=== PATIENT | female | born 1945 | race Caucasian/White ===

== ENCOUNTER 2017-03-06 06:31 | Inpatient (IN) | payer BC ==
[~2017-03-06] VITALS: Ht 167.6 cm; Wt 72.6 kg
[2017-03-06 06:32] VITALS: BP 135/65
[2017-03-06] MEDS ORDERED: OMEPRAZOLE20 MG PO (06:35)
[2017-03-06] MEDS ORDERED: DICLOFENAC SODI75 MG (06:36)
[2017-03-06 06:57] LABS: URINE BILIRUBIN NEGATIVE (Negative); URINE BLOOD 3+ (Negative); URINE CLARITY CLEAR; URINE COLOR YELLOW; URINE GLUCOSE-RANDOM NEGATIVE (Negative); URINE KETONES NEGATIVE (Negative); URINE LEUKOCYTES-REFLEX 1+ (Negative); URINE PROTEIN TRACE (Negative); URINE SPECIFIC GRAVITY >= 1.030 (1.005-1.030); URINE UROBILINOGEN 0.2 E.U./dl (0.2-1.0)
[2017-03-06 06:58] LABS: URINE NITRITE-REFLEX POSITIVE (Negative)
[2017-03-06 07:02] LABS: ABSOLUTE BASOPHILS 0.2 thou/uL (0.0-0.2); ABSOLUTE EOSINOPHILS 0.1 thou/uL (0.0-0.7); BASOPHILS 1.3 %; NUCLEATED RBCS 0 /100WBC; WBC 14.2 thou/uL (4.0-11.0)
[2017-03-06 07:04] LABS: CASTS None Seen /LPF (None Seen); CRYSTALS None Seen /LPF (None Seen); MUCUS 4-6 Moderate strn/LPF (None Seen); SQUAMOUS 0-3 Few /LPF (0-3); URINE RBC 3-10 Few /HPF (0-2); URINE WBC-REFLEX 6-15 Few /HPF (0-5)
[2017-03-06 07:07] LABS: ABSOLUTE LYMPHOCYTES 1.5 thou/uL (0.8-5.3); ABSOLUTE NEUTROPHILS 11.4 thou/uL (1.6-8.1); EOSINOPHILS 0.9 %; HEMATOCRIT 40.5 % (37.0-47.0); HEMOGLOBIN 13.7 gm/dL (12.0-15.0); LYMPHOCYTES 10.6 %; MCH 30.5 pg (26.0-34.0); MCHC 33.9 g/dL (28.0-37.0); MCV 89.8 fL (80.0-100.0); MONOCYTES 6.8 %; MPV 7.4 fl. (7.2-11.1); PLATELET COUNT* 273 thou/uL (150-400); POLYS 80.4 %; RBC 4.51 mil/uL (4.20-5.00); RDW-CV 13.8 % (10.5-14.5)
[2017-03-06 07:19] LABS: ANION GAP 7 mmol/L (7-16); BUN 29 mg/dL (7-18); CALCIUM 9.3 mg/dL (8.5-10.1); CHLORIDE 106 mmol/L (98-107); CO2 29 mmol/L (21-32); CREATININE 1.2 mg/dL (0.6-1.3); GLUCOSE 136 mg/dL (70-99); SODIUM 142 mmol/L (136-145)
[2017-03-06 07:24] LABS: ALBUMIN 3.3 g/dL (3.4-5.0); ALKALINE PHOSPHATASE 111 U/L (46-116); LIPASE 73 U/L (73-393); SGOT 32 U/L (15-37); SGPT 33 U/L (30-65); TOTAL BILIRUBIN 0.4 mg/dL (<0.1-1.0); TOTAL PROTEIN 6.7 g/dL (6.4-8.2); TROPONIN-I LEVEL <0.06 ng/mL (<0.06)
[2017-03-06 07:25] LABS: POTASSIUM 4.1 mmol/L (3.5-5.1)
--- NOTE | 2017-03-06 08:26 | NUR ---
BERNARDA NOTIFIED UPON PT RETURN FROM CT. SHE WAS NOT CONNECTED TO MONITOR SHE WAS NOT CONNECTED PRIOR TO GOING TO CT
--- NOTE | 2017-03-06 10:36 | EKG ---
[place] [address] ELECTROCARDIOGRAM REPORT Name: FARIDABHASKAR Cliff Room: [facility]9 ADM IN [facility].#: [id number] Admission: 03/06/17 Attend Phys: Monty Lemus Discharge: Date of : 49 Report #: [id number] THIS REPORT FOR: //name// [facility] ED Test Date: 2017-03-06 Test Time: 07:07:48 Pat Name: BHASKAR IQBAL Department: Room: [facility] Gender: F [employer]: : 1945 Requested By: Pop Dobbins Order Number: [id number] MD: Kevin Thurman Measurements Intervals [place] Rate: 70 P: 57 GA: 160 QRS: 3 QRSD: 123 T: 63 QT: 407 QTc: 440 Interpretive Statements Sinus rhythm Nonspecific t wave changes No previous ECG available for comparison Electronically Signed On 03-06-2017 10:35:45 HEALTH CARE CONSULTANT by Kevin Thurman [email or web address] <ELECTRONICALLY SIGNED> By: Kevin Thurman MD, [facility] 03/06/17 1035 D: 01/706 6 Kevin Thurman MD, FACC /EPI
[2017-03-06 18:21] VITALS: BP 111/53
[2017-03-06 18:48] VITALS: BP 123/60
--- NOTE | 2017-03-06 18:50 | NUR ---
PATIENT CAME TO THE FLOOR FROM THE ER IN STABLE CONDITION. PAIN IN LOWER LEFT ABDOMEN. PATIENT IS UP AD LAKISHA IN ROOM, WILL CALL FOR HELP IF NEEDED. FAMILY IS BEDISDE WITH FAMILY. ADMISSION EDUCATION AND ASSESSMENT DONE.
[2017-03-06 23:50] VITALS: BP 123/49
[2017-03-07 04:58] LABS: ABSOLUTE LYMPHOCYTES 1.8 thou/uL (0.8-5.3); ABSOLUTE MONOCYTES 0.9 thou/uL (0.0-1.2); ABSOLUTE NEUTROPHILS 8.6 thou/uL (1.6-8.1); BASOPHILS 0.3 %; EOSINOPHILS 0.3 %; LYMPHOCYTES 16.2 %; MCHC 34.3 g/dL (28.0-37.0); MCV 90.5 fL (80.0-100.0); MONOCYTES 7.6 %; MPV 7.8 fl. (7.2-11.1); NUCLEATED RBCS 0 /100WBC; PLATELET COUNT* 209 thou/uL (150-400); POLYS 75.6 %; RBC 3.43 mil/uL (4.20-5.00); RDW-CV 13.9 % (10.5-14.5); WBC 11.3 thou/uL (4.0-11.0)
[2017-03-07 05:03] LABS: HEMOGLOBIN 10.6 gm/dL (12.0-15.0)
--- NOTE | 2017-03-07 06:08 | NUR ---
ASSESSMENT COMPLETE. PT SLEPT MOST OF THE NIGHT WITHOUT ANY CONCERNS. PT GIVEN PRN PAIN AND NAUSEA MEDS NEEDED. PT HAS IV FLUIDS INFUSING. PT IS NPO FOR POSSIBILITY OF SURGERY. PT HRR, ADEQUATE SATS ON ROOM AIR. PT IS UP WITH STANDBY ASSIST TO BATHROOM. SEE ASSESSMENT AND VITALS FOR OTHER DETAILS. CALL LIGHT WITHIN REACH, WILL CONTINUE TO MONITOR
[2017-03-07 08:15] VITALS: BP 115/52
[2017-03-07 08:30] VITALS: BP 123/49
[2017-03-07 14:38] VITALS: BP 105/52
--- NOTE | 2017-03-07 16:03 | NUR ---
SW met with pt and pt and dtr in law at bedside. SW completed initial assessment and introduced self and SW role. Pt alert and oriented, pleasant. Pt lives at home with her . Pt independent and does not have any DME or hx HH or SNF. Pt expressed she does not anticipate any dc needs. SW to continue to follow.
--- NOTE | 2017-03-07 18:06 | NUR ---
PATIENT IS ALERT AND ORIENTED TODAY, VERY PLEASANT. NO COMPLAINTS OF ANY KIND SINCE RETURNING FROM THE OR THIS MORNING. IV IN RIGHT WRIST WORKS WELL WITH IV FLUIDS RUNNING AND ANTIBIOTICS. VITAL SIGNS HAVE BEEN STABLE, UP IN ROOM. CALL LIGHT IS IN REACH. WILL CONTINUE TO MONITOR.
[2017-03-07 19:50] VITALS: BP 104/55
[2017-03-08 00:24] VITALS: BP 111/50
[2017-03-08 04:41] VITALS: BP 115/57
--- NOTE | 2017-03-08 06:16 | NUR ---
ASSESSMENT COMPLETE. PT SLEPT THROUGH THE NIGHT WITHOUT ANY CONCERNS. PT DENIES PAIN AND N/V. PT REPORTS FEELING MUCH BETTER SINCE STENT PLACEMENT. PT IS ON ROOM AIR WITH [place]QAUTE SATS. PT HAS IV FLUIDS INFUSING. PT IS UP WITH STANDBY ASSIST TO BATHROOM. PT REPORTS NO DIFFICULTY VOIDING. PT TURNS SELF IN BED. PT HAS SCD'S IN PLACE. SEE ASSESSMENT AND VITALS FOR OTHER DETAILS. CALL LIGHT WITHIN REACH, WILL CONTINUE TO MONITOR
[2017-03-08 07:38] VITALS: BP 120/55
[2017-03-08 11:40] VITALS: BP 120/55
[2017-03-08] MEDS ORDERED: LEVAQUIN 500 M500 M2 PO (11:59)
[2017-03-08] MEDS ORDERED: TYLENOL EXTRA500 MG PO (12:00)
[2017-03-08] MEDS ORDERED: IBUPROFEN200 M1 PO (12:00)
[2017-03-08] MEDS ORDERED: PYRIDIUM100 M1 PO (12:01)
[2017-03-08] MEDS ORDERED: HYOSCYAMINE0.125 M1 SUBLING (12:02)
[2017-03-08] MEDS ORDERED: KEFLEX500 M2 PO (12:03)
[2017-03-08] MEDS ORDERED: DULCOLAX5 MG PO (12:04)
[2017-03-08] MEDS ORDERED: BENADRYL25 MG PO (12:05)
[2017-03-08] MEDS ORDERED: MELATONIN5 M1 PO (12:05)
[2017-03-08 12:06] VITALS: BP 120/55
--- NOTE | 2017-03-08 14:24 | NUR ---
PATIENT DISCHARGED TO HOME WITH SPOUSE. NO COMPLAINTS OF PAIN THIS MORNING, TOLERATING DIET. VERBALIZES UNDERSTANDING OF PAPERWORK AND SCRIPTS. PATIENT AMBULATED OUT WITH AND STAFF.
--- NOTE | 2017-04-01 11:09 | OP ---
[facility] [address] [place] [address] OPERATIVE REPORT Name: FARIDABHASKAR Room: [address]R.#: [id number] Admission: 03/06/17 Attend Phys: Monty Lemus Discharge: 03/08/17 Date of : 49 Report #: [id number] THIS REPORT FOR: //name// CC: Mallorie Connors DATE OF SERVICE: 03/07/2017 INDICATION FOR PROCEDURE: The patient is a 72-year-old female who was admitted to the Emergency Department last evening with severe left-sided flank pain associated with nausea and vomiting. Her evaluation revealed an 8 mm left proximal ureteral calculus with a probable urinary tract infection. Due to her uncontrolled pain, nausea and vomiting and the possible urinary tract infection noted on urinalysis, I recommended cystoscopy with stent placement. All risks and benefits were discussed in detail with the patient and she elected to proceed. PREOPERATIVE DIAGNOSES: 1. Left ureteral calculus. 2. Urinary tract infection. POSTOPERATIVE DIAGNOSES: 1. Left ureteral calculus. 2. Urinary tract infection. PROCEDURE: Cystoscopy, left retrograde pyelogram, left double-J stent placement. SURGEON: Kevin Pelaez MD ANESTHETIC: General. COMPLICATIONS: None. ESTIMATED BLOOD LOSS: None. PROCEDURE IN DETAIL: The patient was consented for the above procedure. She was given broad-spectrum IV antibiotics preoperatively. She was given general anesthetic and placed in dorsal lithotomy position. She was prepped and draped in the usual sterile fashion over the genitalia. The stone was difficult to see on fluoroscopy. Cystoscopy was performed with a 21-German sheath, 30-degree lens, which revealed a significant cystocele, but no stones, ulcerations or tumors were noted within the bladder itself. The ureteral orifices were easily identified bilaterally. A left retrograde pyelogram was performed with a 5-German Pollack catheter and half strength Omnipaque, which revealed a normal distal ureter up to the level of the proximal third of the [place] [id number] OPERATIVE REPORT Name: BHASKAR IQBAL Room: [address] IN M.R.#: [id number] Admission: 03/06/17 Attend Phys: oMnty Lemus Discharge: 03/08/17 Date of : 49 Report #: [id number] filling defect was identified, consistent with the stone seen on CT. She had moderate hydronephrosis above this. Based on that, a 0.035 floppy tipped guidewire was passed up the left ureter past the stone into the left renal pelvis. With this procedure, marked amount of purulent drainage was noted once the obstruction was relieved. Next, a 4.8 x 26 double-J stent was passed over the wire with a good curl noted in the renal pelvis and in the bladder after removing the wire. Continued purulence was noted consistent with a urinary tract infection. The bladder was drained, the scope was removed. An Urojet was placed per urethra for local anesthesia and the patient was transferred to the recovery room where she remained in stable condition. We will leave the stent in place, complete a full course of IV and p.o. antibiotics and then plans formal stone management in the next 10-14 days. <ELECTRONICALLY SIGNED> By: Kevin Pelaez MD 04/01/17 1109 [id number] Pelaez MD /nt
== END 2017-03-08 13:00 | disposition home or self-care (01) | DRG 872 ==
LOC: M.ERS 06:31 → M.TBA-ER 10:11 → M.3W 10:11
PROVIDERS: Family Medicine; ADMIT Internal Medicine
PROC: BT1F1ZZ Fluoroscopy of Left Kidney, Ureter and Bladder using Low Osmolar Contrast (ICD-10-PCS; principal; 2017-03-07)
PROC: 0T778DZ Dilation of Left Ureter with Intraluminal Device, Via Natural or Artificial Opening Endoscopic (ICD-10-PCS; principal; 2017-03-07)
DX: A41.9 Sepsis, unspecified organism (principal); N13.2 Hydronephrosis with renal and ureteral calculous obstruction; N39.0 Urinary tract infection, site not specified; I10 Essential (primary) hypertension; Z96.652 Presence of left artificial knee joint; Z88.6 Allergy status to analgesic agent; Z88.4 Allergy status to anesthetic agent; Z88.2 Allergy status to sulfonamides; Z88.8 Allergy status to other drugs, medicaments and biological substances; Z79.899 Other long term (current) drug therapy

== ENCOUNTER → 2019-07-18 | Outpatient (CLI) | payer BC ==
[~2019-07-18] MED LIST: BENADRYL25 MG PO; DICLOFENAC SODI75 MG; DULCOLAX5 MG PO; HYOSCYAMINE0.125 M1 SUBLING; IBUPROFEN200 M1 PO; KEFLEX500 M2 PO; LEVAQUIN 500 M500 M2 PO; MELATONIN5 M1 PO; OMEPRAZOLE20 MG PO; PYRIDIUM100 M1 PO; TYLENOL EXTRA500 MG PO
== END ==
LOC: M.ULTRA 08:39
DX: E01.0 Iodine-deficiency related diffuse (endemic) goiter (principal); I10 Essential (primary) hypertension; E78.5 Hyperlipidemia, unspecified; K21.9 Gastro-esophageal reflux disease without esophagitis; M19.90 Unspecified osteoarthritis, unspecified site; M85.88 Other specified disorders of bone density and structure, other site

== ENCOUNTER → 2020-04-06 | Outpatient (CLI) | payer BC | LOC: M.ULTRA 03-30 09:00 | PROVIDERS: ATTEND Family Medicine | DX: E04.1 Nontoxic single thyroid nodule (principal) ==

== ENCOUNTER → 2020-09-10 | Outpatient (CLI) | payer OTHER | LOC: M.CT 08:41 | PROVIDERS: ATTEND Family Medicine | DX: Z13.6 Encounter for screening for cardiovascular disorders (principal) ==

== ENCOUNTER → 2020-10-29 | Outpatient (CLI) | payer BC ==
--- NOTE | 2020-10-29 12:52 | CARDNUC ---
[place] [address] CARDIAC NUCLEAR IMAGING REPORT Name: BHASKAR IQBAL Room: [facility]#: [id number] Admission: 10/29/20 Attend Phys: Alen Mendez, Discharge: Date of : 49 Date of Service: 10/29/20 1251 Report #: [id number] THIS REPORT FOR: cc: Mallorie Hassan Linda J. DO Biggs, F. Douglas MD [facility] ~ APPROVED REPORT Imaging Protocol: Rest Tc-99m/Stress Tc-99m 1 day Study performed: 10/29/2020 07:45:00 Indication: Dyspnea, increased calcium score, surgical clearance. Patient Location: Out-Patient Stress Nurse: LATOYA Bui Tech:JESS Shafer Ht: 5 ft 5 in Wt: 149 lbs BSA: 1.75 m2 BMI: 24.79 Medical History Medical History: CAD, HTN, Hyperlipidemia, FHX CAD, Dyspnea, increased calcium score, knee pain pending knee surgery, arthritis. Medications: Benicar, Rosuvastatin. Allergies: Ezetimibe, Levofloxacin, statins, sulfa ABX. Cardiac Risk Factors: Age, FHX of CAD, HTN, Hyperlipidemia, SOB, increased calcium score. Previous Cardiac Procedures: None Pretest Chest Pain Characteristics: No chest pain Exercise History: Indeterminate Physical Disabilities: Arthritis, Knee pain pending knee surgery. Meds Held (24 hrs): None Resting Data Rest SPECT myocardial perfusion imaging was performed in supine position 30 minutes following the intravenous injection of 9.8 mCi of Tc-99m Sestamibi. Time of rest injection: 804 Date: 10/29/2020 The images were gated to evaluate regional wall motion and calculate left ventricular ejection fraction. Administration Route: IV Administration Site: [place] [address] CARDIAC NUCLEAR IMAGING REPORT Name: BHASKAR IQBAL MIKA Room: [facility]#: [id number] Admission: 10/29/20 Attend Phys: Alen Mendez, Discharge: Date of : 49 Date of Service: 10/29/20 1251 Report #: [id number] Pharmacologic Stress Pharmacologic stress test was performed by injecting Regadenoson 0.4 mg IV push over 10-15 seconds immediately followed by the intravenous injection of 35.4 mCi of Tc-99m Sestamibi. Time of stress injection: 909 Date: 10/29/2020 Administration Route: IV Administration Site: [facility] Gated Stress SPECT was performed 40 minutes after stress injection. The images were gated to evaluate regional wall motion and calculate left ventricular ejection fraction. Prone imaging was performed. Stress Test Details Stress Test: Pharmacologic stress testing performed using 0.4 mg of regadenoson per 5 mL given IV over 10 seconds. Reason for pharmacologic stress test: Arthritis, Knee pain pending knee surgery.. HR Max Heart Rate (APMHR): 147 bpm Resting HR: 69 bpm Target HR (85% APMHR): 124 bpm Max HR Achieved: 96 bpm % of APMHR: 65 Recovery HR: 85 bpm HR response to stress: Normal HR response to stress BP Resting BP: 155/89 mmHg Max BP: 125/74 mmHg Recovery BP: 136/69 mmHg BP response to stress: Normal blood pressure response to stress. ECG Resting ECG: Sinus Rhythm, normal EKG Stress ECG: Sinus Rhythm, normal EKG ST Change: None Arrhythmia: None Recovery ECG: Sinus Rhythm, normal EKG Recovery ST Change: None Recovery Arrhythmia: None Clinical Reason for Termination: Completed protocol Stress Symptoms: Dyspnea, Dizziness, Lightheadedness, [place] [address] CARDIAC NUCLEAR IMAGING REPORT Name: BHASKAR IQBAL Room: [facility]#: [id number] Admission: 10/29/20 Attend Phys: Alen Mendez, Discharge: Date of : 49 Date of Service: 10/29/20 1251 Report #: [id number] Exercise duration: 00 min 00 sec Exercise capacity: 1.00 METs Nurse Comments Patient tolerated a sitting Lexiscan. Patient was stable and stated she felt good when escorted to Nuclear Medicine for imaging. Stress ECG Conclusion Clinical: Non-ischemic Normal hemodynamic response to pharmacologic stress. Non-diagnostic pharmacologic EKG stress due to failure to attain target HR. Study Quality Study: Fair Artifact: Moderate Increased GI uptake Lung Uptake: Normal Study Data At rest, the left ventricular ejection fraction was 71%.. Post stress, the left ventricular ejection was 75%.. SSS: 8 SRS: 7 SDS: 1 TID = 0.99. Perfusion The resting study demonstrated excessive bowel uptake in the inferior wall. This excessive bowel uptake was present on the post stress images in the prone images as well. Otherwise the resting images were normal. The post stress images were also normal other than the excessive bowel uptake. The prone images were also normal other than the excessive bowel uptake. There were no segmental wall motion abnormalities on this studies. There was no evidence of ischemia. Images were reviewed using OSSIANIX. Wall Motion Normal left ventricular wall motion. Nuclear Conclusion ECG Findings: non-diagnostic Clinical Findings: negative for ischemia Nuclear Findings: negative for ischemia Exercise Capacity: not assessed Left Ventricular Function: [place] [address] CARDIAC NUCLEAR IMAGING REPORT Name: JOYCELYN IQBALLuigi CASTAÑEDAAN Room: [facility]#: [id number] Admission: 10/29/20 Attend Phys: Alen Mendez, Discharge: Date of : 49 Date of Service: 10/29/20 1251 Report #: [id number] Risk Study: low Normal study. No scintigraphic evidence for myocardial ischemia or scar. <Conclusion> Clinical: Non-ischemic Normal hemodynamic response to pharmacologic stress. Non-diagnostic pharmacologic EKG stress due to failure to attain target HR. <ELECTRONICALLY SIGNED> By: Shena Chapman MD, FACC 10/29/20 1251 1251 1251 Shena Chapman MD, FACC /INF
== END ==
LOC: M.NUC 10-01 16:38
PROVIDERS: ATTEND Internal Medicine Cardiovascular Disease
DX: I25.10 Atherosclerotic heart disease of native coronary artery without angina pectoris (principal); I10 Essential (primary) hypertension; E78.2 Mixed hyperlipidemia; Z82.49 Family history of ischemic heart disease and other diseases of the circulatory system